=== PATIENT | female | born 1960 | race Caucasian/White ===

== ENCOUNTER 2017-09-20 07:01 | Emergency (ER) | payer MEDICARE, MEDICAID ==
[~2017-09-20 07:01] MED LIST: AMI25T PO; CEPH-357 PO; HYDR1TAB PO; TRAM50TA2 PO; VALA-7 CORPAK
== END 2017-09-20 07:05 | disposition left against medical advice (07) ==
LOC: ER 07:02
DX: J11.1 Influenza due to unidentified influenza virus with other respiratory manifestations (principal); Z53.21 Procedure and treatment not carried out due to patient leaving prior to being seen by health care provider

== ENCOUNTER 2017-10-11 06:06 | Emergency (ER) | payer MEDICARE, MEDICAID ==
[~2017-10-11] VITALS: Ht 149.9 cm; Wt 53.5 kg
[2017-10-11 06:15] VITALS: BP 128/78
[2017-10-11] MEDS ORDERED: NICO-631 TD (07:13)
== END 2017-10-11 07:38 | disposition home or self-care (01) ==
LOC: ER 06:08
DX: F17.210 Nicotine dependence, cigarettes, uncomplicated (principal); G89.29 Other chronic pain; Z88.5 Allergy status to narcotic agent
CPT/HCPCS: 99282; 99406

== ENCOUNTER 2017-10-15 10:13 | Emergency (ER) | payer MEDICARE, MEDICAID ==
[~2017-10-15] VITALS: Ht 149.9 cm; Wt 48.0 kg
[~2017-10-15 10:13] MED LIST changes: +NICO-631 TD
[2017-10-15 10:15] VITALS: BP 134/77
== END 2017-10-15 11:09 | disposition home or self-care (01) ==
LOC: ER 10:14
DX: M79.672 Pain in left foot (principal); G89.29 Other chronic pain; Z88.5 Allergy status to narcotic agent; Z79.899 Other long term (current) drug therapy
CPT/HCPCS: 99281; 99282

== ENCOUNTER 2017-11-12 19:59 | Emergency (ER) | payer MEDICARE, MEDICAID ==
[~2017-11-12] VITALS: Ht 149.9 cm; Wt 57.4 kg
[~2017-11-12 19:59] MED LIST changes: -NICO-631 TD
[2017-11-12 20:06] VITALS: BP 123/82
[2017-11-12] MEDS ORDERED: BUPIVAcaine/PF 2.5 mg/ml (0.25%) 30ml vial IJ ONE (21:30)
[2017-11-12] MEDS ORDERED: LIDOcaine 1% (10mg/ml) 5ml syringe IV ONE (21:35)
[2017-11-12] MEDS ORDERED: LIDOcaine 1.5% w/epinephrine 1:200,000 5ml ampul IJ ONE (21:45)
[2017-11-12] MEDS ORDERED: PENI250T2 PO (22:01)
== END 2017-11-12 22:10 | disposition home or self-care (01) ==
LOC: ER 20:00
DX: K02.9 Dental caries, unspecified (principal); G89.29 Other chronic pain; Z90.49 Acquired absence of other specified parts of digestive tract; Z88.5 Allergy status to narcotic agent; Z79.899 Other long term (current) drug therapy
CPT/HCPCS: 64400; 99284; J3490; J2001

== ENCOUNTER 2017-12-19 05:20 | Emergency (ER) | payer MEDICARE, MEDICAID | END 2017-12-19 06:31 | disposition left against medical advice (07) | LOC: ER 05:20 | DX: B86 Scabies (principal); Z53.21 Procedure and treatment not carried out due to patient leaving prior to being seen by health care provider ==

== ENCOUNTER 2017-12-20 05:05 | Emergency (ER) | payer MEDICARE, MEDICAID ==
[~2017-12-20] VITALS: Ht 149.9 cm; Wt 53.6 kg
[2017-12-20 05:14] VITALS: BP 134/102
[2017-12-20] MEDS ORDERED: triamcinolone acetonide 40mg/ml inj IM ONE (06:30)
== END 2017-12-20 06:59 | disposition home or self-care (01) ==
LOC: ER 05:06
DX: L23.7 Allergic contact dermatitis due to plants, except food (principal); G89.29 Other chronic pain; Z90.49 Acquired absence of other specified parts of digestive tract; Z98.890 Other specified postprocedural states; Z59.0 Homelessness; Z88.5 Allergy status to narcotic agent; Z79.899 Other long term (current) drug therapy
CPT/HCPCS: 96372; 99283; J3301

== ENCOUNTER 2017-12-26 18:36 | Emergency (ER) | payer MEDICARE, MEDICAID ==
[~2017-12-26] VITALS: Ht 149.9 cm; Wt 54.5 kg
[2017-12-26] MEDS: CefTRIAXone/D5W-Rocephin 1gm 50 ML IV ONE ×2 (20:35→20:54)
[2017-12-26] MEDS ORDERED: CefTRIAXone 1000mg IM Kit (w/lidocaine diluent) IM ONE (20:55)
[2017-12-26] MEDS ORDERED: CEPH500C5 PO (22:15)
[2017-12-26] MEDS ORDERED: HYDR-3965 PO (22:15)
[2017-12-26 22:27] VITALS: BP 133/93
== END 2017-12-26 22:25 | disposition home or self-care (01) ==
LOC: ER 18:37
DX: S90.511A Abrasion, right ankle, initial encounter (principal); L03.115 Cellulitis of right lower limb; R53.83 Other fatigue; G89.29 Other chronic pain; Z90.49 Acquired absence of other specified parts of digestive tract; Z88.5 Allergy status to narcotic agent; Z79.899 Other long term (current) drug therapy; Z59.0 Homelessness; X58.XXXA Exposure to other specified factors, initial encounter; Y93.89 Activity, other specified; Y92.89 Other specified places as the place of occurrence of the external cause; Y99.8 Other external cause status
CPT/HCPCS: 73590; 93971; 96372; 99284; J0696

== ENCOUNTER 2018-01-24 08:56 | Emergency (ER) | payer MEDICARE, MEDICAID ==
[~2018-01-24] VITALS: Ht 152.4 cm; Wt 50.0 kg
[~2018-01-24 08:56] MED LIST changes: +HYDR-3965 PO
[2018-01-24 09:00] VITALS: BP 159/74
[2018-01-24] MEDS ORDERED: SULF1TAB49 PO (09:21)
[2018-01-24] MEDS ORDERED: VALA500T PO (09:46)
[2018-01-25] MEDS ORDERED: ALB0.5UD IH (08:53)
[2018-01-25] MEDS ORDERED: SULF1TAB49 PO (10:24)
== END 2018-01-24 09:50 | disposition home or self-care (01) ==
LOC: ER 08:56
DX: L03.114 Cellulitis of left upper limb (principal); L03.115 Cellulitis of right lower limb; G89.29 Other chronic pain; Z76.0 Encounter for issue of repeat prescription; Z86.14 Personal history of Methicillin resistant Staphylococcus aureus infection; Z90.49 Acquired absence of other specified parts of digestive tract; Z98.890 Other specified postprocedural states; Z59.0 Homelessness; Z88.5 Allergy status to narcotic agent; Z79.899 Other long term (current) drug therapy
CPT/HCPCS: 99283